=== PATIENT | male | born 1990 | race Hispanic/Latino ===

== ENCOUNTER 2018-08-02 07:34 | Emergency (ER) | payer SELFPAY ==
[2018-08-02] MEDS ORDERED: Lidocaine Viscous Sol 2% 15 ml UD Cup ONE (08:18)
[2018-08-02] MEDS ORDERED: Mag-Al 1200 mg/1200 mg/30 ML UDCUP ONE (08:18)
[2018-08-02] MEDS ORDERED: Famotidine 20 MG TAB ONE (08:18)
--- NOTE | 2018-08-02 09:00 | RAD ---
PA AND LATERAL CHEST: HISTORY: Chest pain. FINDINGS: The cardiomediastinum is normal. The lungs are well expanded and clear. The bony thorax is normal. IMPRESSION: Normal examination. POS: OFF
== END 2018-08-02 08:27 | disposition home or self-care (01) ==
LOC: ERS 07:34
DX: K21.9 Gastro-esophageal reflux disease without esophagitis (principal); F17.210 Nicotine dependence, cigarettes, uncomplicated
CPT/HCPCS: 71046; 93005

== ENCOUNTER 2019-06-07 15:07 | Emergency (ER) | payer SELFPAY ==
[~2019-06-07 15:07] MED LIST: Dexamethasone 20 MG/5 ML VIAL ONE; Glycopyrrolate 0.2 MG/ML 5 ML SYRINGE ONE; Iopamidol-370 76% 500 ML 1 ML ONE; Ketorolac Tromethamine 30 MG/ML VIAL ONE; Lidocaine 1% PF 5 ML VIAL ONE; PROPOFOL 200 MG/20 ML VIAL ONE; Rocuronium Bromide 10 MG/ML (10ML VIAL) ONE
[2019-06-07 15:31] LABS: Hemoglobin 17.3 g/dL (14.0-18.0); Mean Corpuscular HGB CONC 32.2 g/dL (32.0-36.0); Mean Corpuscular Hemoglobin 28.2 pg (27.0-31.0); Mean Corpuscular Volume 87.4 fL (78.0-98.0); Mean Platelet Volume 11.7 fL (7.4-10.4); Platelet Count 207 thou/uL (130-400); RBC Distribution Width 11.4 % (11.5-14.5); Red Blood Cell (RBC) Count 6.13 mill/uL (4.70-6.10); White Blood Cell (WBC) Count 21.3 thou/uL (4.8-10.8)
[2019-06-07 15:46] LABS: Band 10 % (5-11); Lymphocytes 3 % (21-51); MDiff Complete? YES; Monocytes 3 % (0-10); Neutrophil 84 % (42-75); Platelet Morphology Comment Appears Adequate; RBC Morphology Normal
[2019-06-07 15:51] LABS: ALT (SGPT) 34 U/L (8-55); AST (SGOT) 21 U/L (5-34); Alkaline Phosphatase 103 U/L (40-110); Anion Gap 17 mmol/L (10-20); BUN (Urea Nitrogen) 16 mg/dL (8.9-20.6); CK (CPK) 64 U/L (30-200); Calc. Creatinine Clearance 0 mL/min (70-130); Calcium 10.5 mg/dL (7.8-10.44); Carbon Dioxide 23 mmol/L (22-29); Chloride 100 mmol/L (98-107); Estimated GFR-MDRD 76; Globulin 3.5 g/dL (2.4-3.5); Glucose 164 mg/dL (70-105); Lipase 21 U/L (8-78); Protein, Total 8.5 g/dL (6.0-8.3); Sodium 136 mmol/L (136-145)
--- NOTE | 2019-06-07 16:10 | RAD ---
RADIOGRAPH CHEST 2 VIEWS: 06/07/19 HISTORY: 28-year-old male with chest pain. FINDINGS: The lungs are clear. The cardiomediastinal silhouette and hilar shadows are normal. There is no ple ural effusion. The osseous structures appear normal. There is no pneumothorax. IMPRESSION: Normal. jn [] POS: TPC
[2019-06-07] MEDS ORDERED: Ondansetron PF 4 MG/2 ML Vial ONE (16:12)
[2019-06-07] MEDS ORDERED: Lidocaine Viscous Sol 2% 15 ml UD Cup ONE (16:13)
[2019-06-07] MEDS ORDERED: Pantoprazole 40 MG VIAL ONE (16:13)
[2019-06-07] MEDS ORDERED: Mag-Al 1200 mg/1200 mg/30 ML UDCUP ONE (16:13)
--- NOTE | 2019-06-07 16:59 | CT ---
EXAM: CT ABDOMEN AND PELVIS HISTORY: Abdominal pain. Excessive vomiting. COMPARISON: None. Procedure: Multiple contiguous axial images were obtained and a CT of the abdomen and pelvis with IV contrast. C oronal reformats were performed. FINDINGS: Lower Chest: within normal limits. Vessels: Normal caliber aorta. No periaortic fat stranding Heart: Normal heart size. No significant pericardial fluid Abdomen: Portal vein:Patent Gallbladder: Cholelithiasis. Small amount of pericholecystic fluid is suspected. Correlate clinically for cholecystitis. Liver: within normal limits. Pancreas: within normal limits. Spleen: within normal limits. Adrenals: within normal limits. Kidneys: Symmetric enhancement. No obstructive uropathy. Peritoneum: No ascites or free air, no fluid collection. Bowel: Limited evaluation due to the lack of oral contrast administration. No evidence of bowel obstr uction. Ileocecal junction is unremarkable. Normal caliber appendix. Scattered fecal material in a nondistended, nondilated colon. Scattered diverticulosis, without evidence of diverticulitis. Mesentery and Retroperitoneum: No enlarged mesenteric or retroperitoneal lymph nodes. Abdominal Wall: within normal limits. Pelvis: Reproductive Organs: Reproductive organs are unremarkable. Pelvis: No mass, lymphadenopathy, free air or free fluid. Bladder: within normal limits. Bones: within normal limits. IMPRESSION: 1. Cholelithiasis. Small amount of pericholecystic fluid is noted. Consider gallbladder ultrasound. 2. No evidence of bowel obstruction. 3. Normal caliber appendix. 4. Symmetric enhancement kidneys. Bilaterally no obstructive uropathy.
--- NOTE | 2019-06-07 18:22 | ULT ---
Sonogram right upper quadrant HISTORY: Right upper quadrant pain. FINDINGS: Hyperdense stones within the dependent portion of the gallbladder lumen. Gallbladder is dis tended. Wall thickness measures up to 0.6 cm. Patient was reportedly not tender over the gallbladder fossa at the time of the exam. Common duct is 0.3 cm. Liver has a normal appearance. No free fluid. IMPRESSION: Cholelithiasis. Sonographic findings of acute cholecystitis include gallbladder distentio n and wall thickening. Patient was not tender over the gallbladder fossa at the time of the exam, however. Clinical correlation regarding other signs and symptoms of acute cholecystitis is required.
[2019-06-07] MEDS ORDERED: Piperacillin/Tazobactam 4.5 GM VIAL ONE (18:42)
[2019-06-07] MEDS ORDERED: Bupivacaine 0.25% HCL 30 ML VIAL ONE (18:59)
[2019-06-07] MEDS ORDERED: EPINEPHrine 1 MG/ML AMP ONE (18:59)
[2019-06-07] MEDS ORDERED: Fentanyl 100 MCG/2 ML VIAL ONE ×3 (20:16→22:17)
[2019-06-07] MEDS ORDERED: Midazolam HCl 2 mg/2 ml Vial ONE (20:16)
[2019-06-07] MEDS ORDERED: Lidocaine 2% Jelly 5 ML TUBE ONE (20:20)
--- NOTE | 2019-06-07 21:36 | HP ---
CONSULTING PHYSICIAN: Rahat Macario MD REASON FOR CONSULTATION: Right upper quadrant abdominal pain, cholecystitis. HISTORY OF PRESENT ILLNESS: The patient is a 28-year-old obese male. He was awoken from sleep at about midnight earlier this morning with epigastric abdominal pain and vomiting. His symptoms did not remit through the day and he eventually presented to the emergency room. He has undergone evaluation with radiologic and laboratory studies. His laboratory studies revealed a slightly elevated glucose of 164. His liver function tests were normal as was his lipase. CBC revealed an elevated white blood cell count of 21.3, with a left shift. Hemoglobin is normal at 17.3. Gallbladder ultrasound reveals cholelithiasis and gallbladder wall thickening consistent with acute cholecystitis. PAST MEDICAL HISTORY: Unremarkable. PAST SURGICAL HISTORY: None. MEDICATIONS: None. ALLERGIES: NO KNOWN DRUG ALLERGIES. PRIMARY CARE PHYSICIAN: None. PERSONAL AND SOCIAL HISTORY: He is single, but his girlfriend is present at bedside. He has one child. He does smoke about a half pack per day of cigarettes. He drinks alcohol occasionally, but not every day. He smokes marijuana occasionally, but not every day. He works in construction. REVIEW OF SYSTEMS: Otherwise unremarkable. FAMILY HISTORY: Noncontributory. PHYSICAL EXAMINATION: VITAL SIGNS: He is afebrile. Vital signs are within normal limits. GENERAL: He is a well-developed, well-nourished, pleasant male, resting in bed, in no acute distress. He is alert and oriented x3. HEAD, EYES, EARS, NOSE, AND THROAT: Unremarkable. NECK: Supple without mass or tenderness. LUNGS: Clear to auscultation throughout. CARDIAC: Regular rate and rhythm without murmur. ABDOMEN: Soft with focal tenderness in the right upper quadrant with guarding consistent with a Abraham sign. EXTREMITIES: Unremarkable. ASSESSMENT: The patient with cholelithiasis and acute cholecystitis. PLAN: Laparoscopic cholecystectomy. I have discussed the operation in detail with the patient, as well as potential risks. He understands and agrees to proceed with surgery at this time. Surgery will be performed this evening. Job ID: [id number]
[2019-06-07] MEDS ORDERED: HYDROcodone/Acetaminophen 5/325 mg Tablet ONE (22:16)
--- NOTE | 2019-06-08 10:36 | OP ---
DATE OF PROCEDURE: 06/07/2019 PREOPERATIVE DIAGNOSIS: Acute cholecystitis. POSTOPERATIVE DIAGNOSIS: Acute cholecystitis. PROCEDURE PERFORMED: Laparoscopic cholecystectomy. ANESTHESIA: General endotracheal. INDICATIONS: The patient is an obese 28-year-old male. He was taken to the operating room at this time for laparoscopic cholecystectomy as he had presented with findings consistent with acute cholecystitis. DESCRIPTION OF OPERATION: Informed consent was obtained. The patient was taken to the operating room, where general endotracheal anesthesia was obtained with the patient in supine position. Abdomen was prepped with ChloraPrep and draped in sterile fashion. Local anesthetic was infiltrated using 0.25% Marcaine with epinephrine. An 11-mm supraumbilical incision was created through which a Veress needle was passed into the peritoneal cavity and pneumoperitoneum was established using carbon dioxide up to pressure of 15 mmHg. An 11-mm trocar port was passed through this same incision. Laparoscopic camera was passed through this port. Under direct vision, three additional 5-mm right upper quadrant ports were placed. Attention was turned to the gallbladder. This was grossly inflamed and distended. I could not grasp it initially. An aspiration needle was used to aspirate the gallbladder contents, which were bilious. The gallbladder was grasped and retracted in cephalad direction. Infundibulum was grasped, retracted laterally and inferiorly. Careful dissection was carried out at the apex of the gallbladder to identify the cystic duct and cystic artery. These were both identified and dissected circumferentially as the end of the gallbladder. Each was divided between clips, leaving two on the side to remain within the abdomen. The gallbladder was then carefully dissected out of the gallbladder fossa using electrocautery. It was grasped and removed through the supraumbilical port. Because of the thickness of the gallbladder wall and amount of gallstones present within it, I had to distend the fascial opening and incised the skin to allow gallbladder extraction. The fascia was closed with 0 Vicryl suture using a GraNee needle. Right upper quadrant was thoroughly irrigated. All irrigant was aspirated. All ports and instruments were removed under direct vision. Pneumoperitoneum was carefully evacuated. A 0.25% Marcaine with epinephrine substrate each port site. Skin edges were approximated with 4-0 Monocryl subcuticular suture. Dermabond was placed externally. There were no complications. He was taken to the recovery room in stable condition. Job ID: [id number]
== END 2019-06-07 19:09 | disposition admitted as inpatient to this hospital (09) ==
LOC: ERS 15:07
DX: K81.9 Cholecystitis, unspecified (principal); F17.210 Nicotine dependence, cigarettes, uncomplicated
CPT/HCPCS: 36415; 71046; 74177; 76705; 80053; 82550; 83690; 84484; 85025; 88304; 93005; 96361; 96372; 96374; 96375; C9113; J0171; J0500; J1100; J1885; J2001; J2250; J2405; J2543; J2704; J3010; Q9967; S0020